=== PATIENT | male | born 1975 | race Caucasian/White ===

== ENCOUNTER 2024-09-29 22:28 | Emergency (ER) | payer OTHER ==
[2024-09-29] MEDS ORDERED: levETIRAcetam 500 MG (5 mL) VIAL ONE (22:48)
== END 2024-09-29 22:46 ==
LOC: EEVIPCON 22:28 → CSHERS 22:28
DX: G40.909 Epilepsy, unspecified, not intractable, without status epilepticus (principal); Z87.891 Personal history of nicotine dependence
CPT/HCPCS: J1953